=== PATIENT | male | born 1990 | race African-American/Black ===

== ENCOUNTER 2020-08-25 13:52 | Emergency (ER) | payer OTHER ==
[~2020-08-25] VITALS: Ht 180.3 cm; Wt 72.6 kg
[~2020-08-25 13:52] MED LIST: BACTRIM DS TAB1 EACH PO; FIORICET 50-321 EACH PO; NASONEX17 GM NS; NOHOMEMEDICATIONS
[2020-08-25 14:00] VITALS: BP 119/79
[2020-08-25 14:10] LABS: URINE BILIRUBIN NEGATIVE (Negative); URINE BLOOD NEGATIVE (Negative); URINE CLARITY CLEAR; URINE COLOR YELLOW; URINE GLUCOSE-RANDOM* NEGATIVE (Negative); URINE KETONES NEGATIVE (Negative); URINE LEUKOCYTES-REFLEX NEGATIVE (Negative); URINE NITRITE-REFLEX NEGATIVE (Negative); URINE PROTEIN (DIPSTICK) NEGATIVE (Negative); URINE UROBILINOGEN 0.2 E.U./dl (0.2-1.0)
[2020-08-28 11:07] LABS: HSV 2 IgG 3.41
== END 2020-08-25 14:50 | disposition home or self-care (01) ==
LOC: ER 13:52
PROVIDERS: Physician Assistant
DX: Z11.3 Encounter for screening for infections with a predominantly sexual mode of transmission (principal); G43.909 Migraine, unspecified, not intractable, without status migrainosus

== ENCOUNTER 2021-05-03 10:08 | Emergency (ER) | payer OTHER ==
[~2021-05-03] VITALS: Ht 180.3 cm; Wt 68.0 kg
[~2021-05-03 10:08] MED LIST changes: +VALTREX1000 MG PO
[2021-05-03 11:31] VITALS: BP 116/91
== END 2021-05-03 12:52 | disposition home or self-care (01) ==
LOC: ER 10:08
DX: B34.9 Viral infection, unspecified (principal); Z20.822 Contact with and (suspected) exposure to COVID-19; G43.909 Migraine, unspecified, not intractable, without status migrainosus